=== PATIENT | female | born 1990 | race Two or more races ===

== ENCOUNTER 2021-11-17 16:36 | Emergency (ER) | payer OTHER ==
[~2021-11-17] VITALS: Ht 152.4 cm; Wt 62.1 kg
== END 2021-11-17 22:55 | disposition home or self-care (01) ==
LOC: ER 16:36
DX: O21.8 Other vomiting complicating pregnancy (principal); Z3A.09 9 weeks gestation of pregnancy

== ENCOUNTER 2022-05-03 09:03 | Outpatient (CLI) | payer OTHER | END 2022-05-03 09:56 | disposition home or self-care (01) | LOC: NST 09:03 | PROVIDERS: ATTEND Obstetrics & Gynecology | DX: Z34.83 Encounter for supervision of other normal pregnancy, third trimester (principal) ==

== ENCOUNTER 2022-06-01 11:05 | Outpatient (CLI) | payer OTHER | END 2022-06-01 11:31 | disposition home or self-care (01) | LOC: NST 11:05 | PROVIDERS: ATTEND Obstetrics & Gynecology Gynecology | DX: Z34.83 Encounter for supervision of other normal pregnancy, third trimester (principal) ==

== ENCOUNTER 2022-06-18 08:01 | Outpatient (CLI) | payer OTHER | END 2022-06-18 09:22 | disposition home or self-care (01) | LOC: NST 08:01 | PROVIDERS: ATTEND Obstetrics & Gynecology | DX: Z34.83 Encounter for supervision of other normal pregnancy, third trimester (principal) ==

== ENCOUNTER 2022-06-22 09:22 | Outpatient (CLI) | payer OTHER | END 2022-06-22 10:07 | disposition home or self-care (01) | LOC: NST 09:22 | PROVIDERS: ATTEND Obstetrics & Gynecology | DX: Z34.83 Encounter for supervision of other normal pregnancy, third trimester (principal) ==